=== PATIENT | male | born 1975 | race Hispanic/Latino ===

== ENCOUNTER 2022-12-15 14:03 | Emergency (ER) | payer OTHER, SELFPAY ==
--- NOTE | 2022-12-15 14:16 | ED.URI ---
HPI - URI/Sore Throat General Chief Complaint: Upper Respiratory Infection Stated Complaint: fever,trouble breathing,body aches Time Seen by Provider: 12/15/22 14:17 Source: patient, RN notes reviewed and old records reviewed Mode of arrival: ambulatory Limitations: no limitations History of Present Illness HPI Narrative: 47-year-old male presents to the [facility] with complaints of fever, body pain. and daughter tested positive for COVID earlier today. Denies chest pain, shortness of breath. Denies abdominal pain. No treatment prior to arrival Related Data Home Medications Medication Instructions Recorded Confirmed metformin 850 mg tablet 850 mg DIRECTED 12/15/22 12/15/22 simvastatin 40 mg tablet 40 mg DIRECTED 12/15/22 12/15/22 Allergies Allergy/AdvReac Type Severity Reaction Status Date / Time Animal Dander Allergy Mild Uncoded 10/04/10 10:49 COLD WEATHER Allergy Mild Uncoded 05/05/09 12:22 Dust Allergy Mild Uncoded 10/04/10 10:49 Review of Systems Review of Systems: All systems reviewed & are unremarkable except as noted in HPI and below Constitutional: Constitutional: Reports as per HPI, Reports body ache(s), Reports fatigue and Reports headache(s) Eyes: Eyes: Reports no additional eye complaints ENT: Reports as per HPI Cardiovascular: Cardiovascular: Reports no additional cardiovascular complaints, Denies chest pain and Denies dyspnea Respiratory: Respiratory: Reports no additional respiratory complaints, Denies chest congestion, Denies cough and Denies dyspnea Gastrointestinal: Gastrointestinal: Reports no additional gastrointestinal complaints, Denies abdominal pain, Denies nausea and Denies vomiting Musculoskeletal: Musculoskeletal: Reports no additional musculoskeletal complaints Integumentary/Breasts: Skin/Breast: Reports system reviewed and no additional complaints, except as docu Neurologic: Reports system reviewed and no additional complaints, except as documented Psychiatric: Psychiatric: Reports no additional psychiatric complaints Allergic/Immunologic: Allergic/Immunologic: Reports no additional allergic/immunologic complaints PMFSH Comments At the time of my signature, I reviewed and agree with the nursing past medical, surgical, social, and family history. There is no relevant family history pertinent to the patient complaint. Exam Const: General: cooperative, healthy appearing, comfortable, no acute distress, well developed, alert and well nourished Nutritional Appearance: well nourished Orientation/consciousness: patient oriented x3 Limitations: no limitations HENMT: Head: normal to inspection Ears: hearing grossly normal bilaterally, external ears normal, TM's normal bilaterally and EAC's normal Face/Nose/Sinus: Normal external nose present, Normal nares present, Normal nasal mucous membranes and turbinates present and normal facial exam Face and sinus: normal facial exam Mouth: Yes Normal oral and palatal mucosa present, Yes lip normal and Yes moist mucous membranes Throat: posterior oropharynx normal, uvula midline and postnasal drainage Eyes: General: appearance normal, both eyes and all related structures Alignment and Position: alignment normal Periorbital: periorbital findings normal Pupils: Equal, round and reactive pupils present EOM: EOMs intact bilaterally Neck: Neck: normal visual inspection, full ROM, no lymphadenopathy and no meningeal signs Chest: Chest palpation & inspection: normal inspection of the chest Resp: Effort & Inspection: normal respiratory effort and able to speak in complete sentences Auscultation: clear to auscultation bilaterally, no crackles, no rales, no rhonchi and no wheezes Cardio: Rate: regular rate Rhythm: regular rhythm Back/Spine/Pelvis: Cervical Spine: cervical ROM normal Skin: General skin exam: normal color and no rashes or lesions noted Lesions: no lesions Rashes: no rashes Wounds: no wounds Neuro: General: pat
[2022-12-15 14:17] VITALS: BP 123/76; PULSE 83; RESP 16; TEMP 37.9; O2SAT 100
[2022-12-15 14:19] VITALS: BP 123/76; PULSE 83; RESP 16; TEMP 37.9; O2SAT 100
== END 2022-12-15 14:34 | disposition home or self-care (01) ==
PROVIDERS: Emergency Provider Nurse Practitioner; PCP Physician Assistant
DX: U07.1 COVID-19 (principal); E78.00 Pure hypercholesterolemia, unspecified; E11.9 Type 2 diabetes mellitus without complications
CPT/HCPCS: 87426; 99213; C9803; G0463

== ENCOUNTER 2023-06-16 09:36 | Day surgery (SDC) | payer OTHER, SELFPAY ==
[2023-06-01 06:20] VITALS: BMI 25.8
[2023-06-02 13:17] VITALS: BMI 25.7
[2023-06-16 10:13] VITALS: BMI 25.3
[2023-06-16 10:16] VITALS: BP 119/90; PULSE 69; RESP 18; TEMP 37; O2SAT 99
[2023-06-16] MEDS: LACTATED RINGERS 1,000 ML 150 ML IV CONT (10:27)
[2023-06-16 10:33] LABS: Glucose Point of Care 129 mg/dl (65-105)
--- NOTE | 2023-06-16 10:37 | P.HP_ITS ---
History of Present Illness History of Present Illness Consent: Risks, benefits, and alternatives have been discussed and questions answered. Patient agrees to proceed with procedure. Chief complaint: Neoplasm screening Narrative: Juan Pablo Rudd is a 48 year old male presents for screening colonoscopy. Patient's current weight appetite is are normal. Patient denies abdominal pain. He has had no bleeding. Family history is noncontributory. Review of Systems Review of Systems: Review of systems noncontributory. [facility] Social History Social History Smoking status: Never smoker Alcohol intake: current Drinks per week: 1 Alcohol use details: 2-3 DRINKS PER MONTH Substance use: never Substance use type: does not use Living arrangements: with family Spiritual care concerns: No Meds Home Medications and Allergies Home Medications Medication Instructions Recorded Confirmed Type metformin 850 mg tablet 850 mg PO BID 12/15/22 06/16/23 History simvastatin 40 mg tablet 40 mg PO HS 12/15/22 06/16/23 History Allergies Allergy/AdvReac Type Severity Reaction Status Date / Time No Known Allergies Allergy Verified 06/16/23 09:58 Vital Signs Vital Signs - 24 hr 06/16/23 10:16 Temperature 98.6 F Pulse Rate 69 Respiratory Rate 18 Blood Pressure 119/90 Pulse Oximetry 99 Oxygen Delivery Room Air Exam Narrative: Physical exam reveals patient to be alert. Vital signs stable. HEENT is unremarkable. Is anicteric. Lungs are clear to auscultation and percussion. Heart is without murmur or extra sounds. Abdomen bowel sounds present soft nontender with no organomegaly. Digital external rectal exam normal. Assessment and Plan Assessment and plan (1) Encounter for screening colonoscopy: Code(s): Z12.11 - Encounter for screening for malignant neoplasm of colon Status: Acute Assessment and Plan: Patient presents today for screening colonoscopy. He appears to be at average risk for colon polyps.
--- NOTE | 2023-06-16 10:42 | WPDANESEPPF ---
Anes - Initial Pre Proc Eval Procedure: Operation Date: 06/16/23 11:30 Proposed Procedures p Colonoscopy - Pb Putnam MD Date/Time: 06/16/23 10:42 Surgeon: Pb Putnam MD Pre Op Diagnosis: Neoplasm screening Patient Data Age: 48 Gender: M Height: 1.83 m Weight: 84.8 kg Last Vital Signs Temp 37.0 C 06/16/23 10:16 Pulse 69 06/16/23 10:16 Resp 18 06/16/23 10:16 BP 119/90 06/16/23 10:16 Pulse Ox 99 06/16/23 10:16 O2 Del Method Room Air 06/16/23 10:16 Allergies Allergy/AdvReac Type Severity Reaction Status Date / Time No Known Allergies Allergy Verified 06/16/23 09:58 Home Medications Medication Instructions Recorded Confirmed Type metformin 850 mg tablet 850 mg PO BID 12/15/22 06/16/23 History simvastatin 40 mg tablet 40 mg PO HS 12/15/22 06/16/23 History Laboratory Tests 06/16/23 10:30 POC Capillary Glucose 129 H mg/dl (65-105) Patient hx anesthesia problems: none Family hx anesthesia problems: none Results Review: All pre-operative results and documents have been reviewed as part of the pre-operative evaluation. [facility] Past Medical History Medical History (Updated 06/16/23 @ 10:43 by Cuco Zimmerman MD) Asthma Diabetes Hyperlipidemia Social History Social History Smoking status: Never smoker Alcohol intake: current Drinks per week: 1 Alcohol use details: 2-3 DRINKS PER MONTH Substance use: never Substance use type: does not use Living arrangements: with family Spiritual care concerns: No Anes - Eval Final PreProcedure Day of Procedure 06/16/23 10:42 Patient weight: overweight Heart: regular rate and rhythm Lungs: clear to auscultation Airway: Mallampati scale class II Neurological: alert and oriented Last oral intake: >/= 8 hours ASA classification: III Emergent: no Anesthetic plan: proceed Anesthesia type and monitoring: general GIVS and standard monitoring Results Review: All pre-operative results and documents have been reviewed as part of the pre-operative evaluation. Informed Consent: The patient's anesthetic plan and its attendant risks and benefits were discussed with the patient/family/POA. Questions were solicited and answers provided to the satisfaction of the patient/family/POA.
[2023-06-16 12:09] VITALS: BP 103/72; PULSE 77; RESP 16; O2SAT 99
[2023-06-16 12:19] VITALS: BP 103/87; PULSE 67; RESP 16; O2SAT 99
[2023-06-16 12:29] VITALS: BP 117/86; PULSE 62; RESP 16; O2SAT 99
--- NOTE | 2023-06-16 13:08 | WPDANESPN ---
Anes - Prog Note Post-Op Date/Time: 06/16/23 13:08 Cardiovascular status: normal Respiratory status: normal Airway patency: baseline Mental status: baseline Post-Op hydration status: normal Vital Signs: Last Vital Signs Temp 37.0 C 06/16/23 10:16 Pulse 62 06/16/23 12:29 Resp 16 06/16/23 12:29 BP 117/86 06/16/23 12:29 Pulse Ox 99 06/16/23 12:29 O2 Del Method Room Air 06/16/23 12:29 Pain Score (VAS): 0/10 I/O: Intake & Output 06/15/23 06/16/23 06/16/23 23:59 07:59 15:59 Intake Total 450 Balance 450 06/16/23 10:30 POC Capillary Glucose 129 H Patient Feedback: Patient satisfied with anesthetic care.
== END 2023-06-16 12:40 | disposition home or self-care (01) ==
PROVIDERS: PCP Physician Assistant; Visit Provider Internal Medicine Gastroenterology
PROC: 0DJD8ZZ Inspection of Lower Intestinal Tract, Via Natural or Artificial Opening Endoscopic (ICD-10-PCS; CPT 45378; principal; 2023-06-16 11:30)
DX: Z12.11 Encounter for screening for malignant neoplasm of colon (principal)
CPT/HCPCS: 45378